=== PATIENT | female | born 1995 | race Asian ===

== ENCOUNTER 2016-10-22 19:21 | Emergency (ER) | payer OTHER ==
[~2016-10-22] VITALS: Ht 167.6 cm; Wt 49.9 kg
[~2016-10-22 19:21] MED LIST: BENADRYL25 MG ORAL; NITROFURANTOIN100 M2 ORAL; PROZAC20 MG ORAL; REGLAN5 MG ORAL; VITAFOL-OB CAP1 EACH PO
[2016-10-22 19:33] VITALS: BP 129/88
[2016-10-22] MEDS ORDERED: Acetaminophen 500mg (ES) tab ORAL ONE (20:00)
[2016-10-22 20:07] LABS: APPEARANCE,URINE CLEAR; KETONES,URINE NEGATIVE (NEGATIVE); LEUKOCYTE ESTERASE ,URINE NEGATIVE (NEGATIVE); NITRITE,URINE POSITIVE (NEGATIVE); PH,URINE 7 (4.5-8.0); PROTEIN,URINE NEGATIVE (NEGATIVE); UROBILINOGEN,URINE NORMAL MG/DL (0.0-1.0)
[2016-10-22 20:18] LABS: BACTERIA,URINE FEW /HPF; SQUAMOUS EPITHELIAL CELL,UR FEW /LPF (NONE/OCC); WBC,URINE 0-2 /HPF (0 - 2)
--- NOTE | 2016-10-22 20:18 | Emergency Room Report ---
History of Present Illness General Chief Complaint: Flu Like Symptoms Source: Patient Present Illness HPI 20-year-old female presents emergency department complaining of right-sided constant dull headache that was slowly progressive and she rates as 6/10 in severity x2-1/2 days. Patient states she took Advil with no relief. Patient denies nausea, vomiting, photophobia, fevers, chills. Patient reports increasing fatigue. Patient denies denies abdominal pain denies dysuria, frequency or urgency. Patient states she's been having intermittent insomnia and has been taking [id number] sleep aid. Patient denies other past medical history or medications. She denies constipation or diarrhea. She denies changes in vision or hearing. Denies cough, neck pain or stiffness, nasal congestion or rhinorrhea. Denies CP, Palpitations, LOC, AMS, dizziness, Changes in Vision, Sensation, paresthesias, or a sudden severe headache. denies hx of migraines or DE SOUZA's. Allergies: Coded Allergies: No Known Allergies (Unverified , 12/10/15) Patient History Past Medical History: see triage record Past Surgical History: none Pertinent Family History: none Last Menstrual Period: 10/19/16 Now: No : 1 Para: 0 Reviewed Nursing Documentation: PMH: Agreed, PSxH: Agreed Nursing Documentation-PMH Past Medical History: No Stated History Review of Systems All Other Systems: negative except mentioned in HPI Physical Exam Vital Signs Date Time Temp Pulse Resp B/P Pulse Ox O2 Delivery O2 Flow Rate FiO2 10/22/16 19:27 98.2 99 14 129/88 98 Room Air Sp02 EP Interpretation: reviewed, normal General Appearance: no apparent distress, alert, GCS 15, non-toxic Head: normocephalic, atraumatic Eyes: bilateral eye PERRL, bilateral eye normal inspection ENT: hearing grossly normal, normal pharynx, no angioedema, normal voice Neck: full range of motion, no meningismus, no bony tend, supple/symm/no masses Respiratory: chest non-tender, lungs clear, normal breath sounds, speaking full sentences Cardiovascular #1: regular rate, rhythm, no edema, normal capillary refill Gastrointestinal: normal bowel sounds, non tender, soft, no guarding, no rebound Rectal: deferred Genitourinary: normal inspection, no CVA tenderness Musculoskeletal: back normal, gait/station normal, normal range of motion, non- tender, no calf tenderness Neurologic: alert, oriented x3, responsive, motor strength/tone normal, sensory intact, cerebellar normal, normal gait, speech normal Psychiatric: judgement/insight normal, memory normal, mood/affect normal, no suicidal/homicidal ideation Skin: normal color, no rash, warm/dry, well hydrated Lymphatic: normal inspection Medical Decision Making PA Attestation Dr. abdullahi is my supervising Physician whom patient management has been discussed with. Diagnostic Impression: Primary Impression: Urinary tract infection Qualified Codes: N30.01 - Acute cystitis with hematuria Additional Impression: Headache Qualified Codes: R51 - Headache ER Course 20-year-old female presents emergency department complaining of right-sided constant dull headache that was slowly progressive and she rates as 8/10 in severity x2-1/2 days. Patient states she took Advil with no relief. Patient denies nausea, vomiting, photophobia, fevers, chills. Patient reports increasing fatigue. Patient denies denies abdominal pain denies dysuria, frequency or urgency. Patient states she's been having intermittent insomnia and has been taking [id number] sleep aid. Patient denies other past medical history or medications. She denies constipation or diarrhea. She denies changes in vision or hearing. Denies cough, neck pain or stiffness, nasal congestion or rhinorrhea. denies hx of migraines. Ddx considered but are not limited to migraine, SAH, Mass lesion, Cluster DE SOUZA, Tension DE SOUZA, Post lumbar puncture DE SOUZA, UTI, Vital signs: are WNL, pt. is afebrile H&PE are most consistent with DE SOUZA , no focal neurological deficit. will r/o UTI and , no recent procedures. ORDERS: -UA: Nitrite positive, few bacteria -- indicating infection -Urine HCG: negative ED INTERVENTIONS: -10mg Reglan Oral -Tylenol PO DISCHARGE: At this time pt. is stable for d/c to home. Will provide printed patient care instructions, and any necessary prescriptions. Care plan and follow up instructions have been discussed with the patient prior to discharge. Labs Test 10/22/16 19:54 Urine Color Pale yellow Urine Appearance Clear Urine pH 7 (4.5-8.0) Urine Specific [place] 1.005 (1.005-1.035) Urine Protein Negative (NEGATIVE) Urine Glucose (UA) Negative (NEGATIVE) Urine Ketones Negative (NEGATIVE) Urine Occult Blood 5+ (NEGATIVE) Urine Nitrite Positive (NEGATIVE) Urine Bilirubin Negative (NEGATIVE) Urine Urobilinogen Normal MG/DL (0.0-1.0) Urine Leukocyte Esterase Negative (NEGATIVE) Urine RBC 2-4 /HPF (0 - 2) Urine WBC 0-2 /HPF (0 - 2) Urine Squamous Epithelial Cells Few /LPF (NONE/OCC) Urine Bacteria Few /HPF (NONE) Urine HCG, Qualitative Negative Last Vital Signs Date Time Temp Pulse Resp B/P Pulse Ox O2 Delivery O2 Flow Rate FiO2 10/22/16 19:33 99 14 Room Air 10/22/16 19:33 98.2 129/88 98 Disposition: HOME, SELF-CARE Condition: Stable Scripts Acetaminophen* (TYLENOL EXTRA STRENGTH*) 500 Mg Tablet 500 MG ORAL Q6H, #30 TAB 0 Refills Prov: Carissa Hayden 10/22/16 Nitrofurantoin Monohyd/M-Cryst* (MACROBID 100 MG*) 100 Mg Capsule 100 MG ORAL EVERY 12 HOURS for 5 Days, #10 CAP Prov: Carissa Hayden 10/22/16 Patient Instructions: General Headache Without Cause, [id number], Urinary Tract Infection, [id number] Additional Instructions: Take medications as directed. Follow up with PCP in 3-5 days Return sooner to ED if new symptoms occur, or current symptoms become worse. - Please note that this Emergency Department Report was dictated using IZI-collectecomfort station attendant technology software, occasionally this can lead to erroneous entry secondary to interpretation by the dictation equipment. Carissa Hayden Oct 22, 2016 20:18
[2016-10-22] MEDS ORDERED: NITROFURANTOIN100 M2 ORAL (20:32)
[2016-10-22] MEDS ORDERED: TYLENOL EXTRA500 MG ORAL (20:32)
[2016-10-22 20:46] VITALS: BP 124/79
== END 2016-10-22 20:50 | disposition home or self-care (01) ==
LOC: EMR 20:08
DX: N39.0 Urinary tract infection, site not specified (principal); R51 Headache
CPT/HCPCS: 81003; 81025; 99284

== ENCOUNTER 2018-06-16 15:02 | Emergency (ER) | payer OTHER ==
[~2018-06-16] VITALS: Ht 162.6 cm; Wt 61.2 kg
[~2018-06-16 15:02] MED LIST changes: +TYLENOL EXTRA500 MG ORAL
--- NOTE | 2018-06-16 15:21 | Emergency Room Report ---
History of Present Illness General Chief Complaint: Female Urogenital Problems Source: Patient Present Illness HPI 22-year-old female patient presents the ER complaining of urine changes and "feeling weird". Patient reports that she has a history of depression and was recently placed on Cymbalta by her primary care provider. Patient states that she believes her symptoms are related to taking the medication. Denies dysuria , hematuria, vaginal discharge. Denies diarrhea. Denies flank pain. Reports urine is darker in color. Denies syncope or passage of clots. Denies abdominal pain, shortness of breath. Denies chest pain, fever. Denies injury or trauma. Denies thoughts of hurting herself or others. States she informed her psychiatrist of the symptoms and they told her to go to the ER. Denies diarrhea or constipation. Allergies: Coded Allergies: No Known Allergies (Unverified , 12/10/15) Patient History Past Medical History: see triage record Reviewed Nursing Documentation: PMH: Agreed; PSxH: Agreed Nursing Documentation-PMH Past Medical History: No History, Except For History Of Psychiatric Problem: Yes - depression Review of Systems All Other Systems: negative except mentioned in HPI Physical Exam Vital Signs Date Time Temp Pulse Resp B/P (MAP) Pulse Ox O2 Delivery O2 Flow Rate FiO2 06/16/18 15:05 98.8 102 18 125/89 94 Room Air Sp02 EP Interpretation: reviewed, normal General Appearance: well appearing, no apparent distress, alert, GCS 15, non- toxic Head: normocephalic, atraumatic Eyes: bilateral eye normal inspection, bilateral eye PERRL ENT: hearing grossly normal, normal pharynx, no angioedema, normal voice, uvula midline, moist mucus membranes Neck: full range of motion Respiratory: lungs clear, normal breath sounds, no rhonchi, no respiratory distress, no accessory muscle use, no wheezing, speaking full sentences Cardiovascular #1: regular rate, rhythm, no edema Gastrointestinal: non tender, soft, no mass, non-distended, no guarding, no rebound Genitourinary: no CVA tenderness Musculoskeletal: back normal, digits/nails normal, gait/station normal, normal range of motion, non-tender Neurologic: alert, oriented x3, responsive, motor strength/tone normal, sensory intact Psychiatric: mood/affect normal Skin: no rash Medical Decision Making PA Attestation Dr. Shannon is my supervising Physician whom patient management has been discussed with. Diagnostic Impression: Primary Impression: Hematuria Additional Impressions: Medication side effect Ovarian cyst ER Course Pt. presents to the ED c/o "feeling weird" and dark colored urine. Ddx considered but are not limited to medication side effect, hemorrhagic cyst, fibroids, UTI. Vital signs: are WNL, pt. is afebrile ER COURSE: CBC and CMP unremarkable, no elevation in LFTs, creatinine clearance and BUN normal, CK not elevated UA shows elevated RBCs, instruct patient follow-up with and EDGING MACHINE OPERATOR as needed , no signs of infection, does not require antibiotics Urine negative No abdominal tenderness palpation, normal bowel sounds, patient does not require CT abdomen at this time. Patient resting comfortably in bed. Zuly present at bedside. Zuly states that he spoke with psychiatrist over the phone and was told to discontinue the medication by psychiatrist, will follow-up next week. Order pelvic ultrasound. Informed by wastewater technician that patient declined transvaginal ultrasound, transabdominal ultrasound performed showing right-sided follicular cyst, no torsion, no fibroids, no free fluid. Informed patient follow-up with EDGING MACHINE OPERATOR for further treatment and referral. Discussed need for management and monitoring of cyst. Follow-up with psychiatrist as scheduled appointment to discuss medication use. Patient denies thoughts of hurting herself or others, do not believe patient danger to herself at this time, okay for outpatient follow-up and treatment. ER precautions given. DISCHARGE: At this time pt is stable for d/c to home. Patient is resting comfortably, in no acute distress, nontoxic appearing, talking without difficulty. Patient to take medications as instructed Will provide with patient care instructions and any necessary prescriptions. Care plan and follow-up instructions provided. Patient instructed to follow-up with primary care provider in 3 - 5 days. Patient questions asked and answered. Patient reports understanding and agreement to treatment plan. ER precautions given. Patient instructed to return to ER immediately for any new or worsening of symptoms including but not limited to increasing SOB, persistent fever, chest pain, intractable vomiting. - Please note that this Emergency Department Report was dictated using [employer] educational aide technology software, occasionally this can lead to erroneous entry secondary to interpretation by the dictation equipment. Labs Test 06/16/18 15:45 06/16/18 16:55 White Blood Count 10.5 K/UL (4.8-10.8) Red Blood Count 5.07 M/UL (4.20-5.40) Hemoglobin 15.0 G/DL (12.0-16.0) Hematocrit 44.0 % (37.0-47.0) Mean Corpuscular Volume 87 FL (80-99) Mean Corpuscular Hemoglobin 29.6 PG (27.0-31.0) Mean Corpuscular Hemoglobin Concent 34.1 G/DL (32.0-36.0) Red Cell Distribution Width 10.4 % (11.6-14.8) Platelet Count 446 K/UL (150-450) Mean Platelet Volume 6.3 FL (6.5-10.1) Neutrophils (%) (Auto) 62.4 % (45.0-75.0) Lymphocytes (%) (Auto) 26.5 % (20.0-45.0) Monocytes (%) (Auto) 9.2 % (1.0-10.0) Eosinophils (%) (Auto) 0.6 % (0.0-3.0) Basophils (%) (Auto) 1.2 % (0.0-2.0) Sodium Level 134 MMOL/L (136-145) Potassium Level 3.5 MMOL/L (3.5-5.1) Chloride Level 98 MMOL/L (98-107) Carbon Dioxide Level 22 MMOL/L (21-32) Anion Gap 14 mmol/L (5-15) Blood Urea Nitrogen 11 mg/dL (7-18) Creatinine 0.8 MG/DL (0.55-1.30) Estimat Glomerular Filtration Rate > 60 mL/min (>60) Glucose Level 95 MG/DL (74-106) Calcium Level 9.2 MG/DL (8.5-10.1) Total Bilirubin 1.2 MG/DL (0.2-1.0) Direct Bilirubin 0.3 MG/DL (0.0-0.3) Aspartate Amino Transf (AST/SGOT) 24 U/L (15-37) Alanine Aminotransferase (ALT/SGPT) 31 U/L (12-78) Alkaline Phosphatase 69 U/L (46-116) Total Creatine Kinase 144 U/L (26-308) Total Protein 9.0 G/DL (6.4-8.2) Albumin 4.2 G/DL (3.4-5.0) Globulin 4.8 g/dL Albumin/Globulin Ratio 0.9 (1.0-2.7) Urine Color Pale yellow Urine Appearance Clear Urine pH 7 (4.5-8.0) Urine Specific [place] 1.005 (1.005-1.035) Urine Protein Negative (NEGATIVE) Urine Glucose (UA) Negative (NEGATIVE) Urine Ketones 2+ (NEGATIVE) Urine Blood 4+ (NEGATIVE) Urine Nitrite Negative (NEGATIVE) Urine Bilirubin Negative (NEGATIVE) Urine Urobilinogen Normal MG/DL (0.0-1.0) Urine Leukocyte Esterase Negative (NEGATIVE) Urine RBC 2-4 /HPF (0 - 2) Urine WBC 0-2 /HPF (0 - 2) Urine Squamous Epithelial Cells Few /LPF (NONE/OCC) Urine Bacteria Few /HPF (NONE) Urine HCG, Qualitative Negative (NEGATIVE) CT/MRI/US Diagnostic Results CT/MRI/US Diagnostic Results : Imaging Test Ordered: Transabdominal US Impression Right-sided follicular cyst No torsion, no fibroids, no free fluid Last Vital Signs Date Time Temp Pulse Resp B/P (MAP) Pulse Ox O2 Delivery O2 Flow Rate FiO2 06/16/18 15:05 98.8 102 18 125/89 94 Room Air Disposition: HOME, SELF-CARE Condition: Stable Scripts Phenazopyridine Hcl* (PYRIDIUM*) 100 Mg Tablet 100 MG ORAL THREE TIMES A DAY, #15 TAB Prov: Checo Johnson 06/16/18 Patient Instructions: Hematuria, Adult, Ovarian Cyst, [id number] Additional Instructions: Followup with primary care provider in 3 -5 days. Discuss referral to and OB /CARDIOVASCULAR SONOGRAPHER. Follow-up with psychiatrist and discuss medication. Advised patient on discontinue medication currently. Take medications as directed. Patient questions asked and answered. ER precautions given, patient instructed to return to ER immediately for any new or worsening of symptoms. Checo Johnson Jun 16, 2018 15:21
[2018-06-16 16:02] LABS: BASOPHILS % (AUTO) 1.2 % (0.0-2.0); EOSINOPHILS % (AUTO) 0.6 % (0.0-3.0); LYMPHOCYTES % (AUTO) 26.5 % (20.0-45.0); MEAN CORPUSCULAR VOLUME 87 FL (80-99); MONOCYTES % (AUTO) 9.2 % (1.0-10.0); NEUTROPHILS % (AUTO) 62.4 % (45.0-75.0); PLATELET COUNT 446 K/UL (150-450); RED BLOOD COUNT 5.07 M/UL (4.20-5.40); RED CELL DISTRIBUTION WIDTH 10.4 % (11.6-14.8); WHITE BLOOD COUNT 10.5 K/UL (4.8-10.8)
[2018-06-16 16:10] LABS: ANION GAP 14 mmol/L (5-15); BLOOD UREA NITROGEN 11 mg/dL (7-18); CALCIUM 9.2 MG/DL (8.5-10.1); CARBON DIOXIDE 22 MMOL/L (21-32); CHLORIDE 98 MMOL/L (98-107); CREATININE 0.8 MG/DL (0.55-1.30); POTASSIUM 3.5 MMOL/L (3.5-5.1); SODIUM 134 MMOL/L (136-145)
[2018-06-16 16:16] LABS: CREATINE KINASE 144 U/L (26-308)
[2018-06-16 16:21] LABS: ALANINE AMINOTRANSFERASE 31 U/L (12-78); ALBUMIN 4.2 G/DL (3.4-5.0); ALBUMIN/GLOBULIN RATIO 0.9 (1.0-2.7); ALKALINE PHOSPHATASE 69 U/L (46-116); ASPARTATE AMINO TRANSFERASE 24 U/L (15-37); BILIRUBIN,TOTAL 1.2 MG/DL (0.2-1.0)
[2018-06-16 16:22] LABS: BILIRUBIN,DIRECT 0.3 MG/DL (0.0-0.3)
[2018-06-16 17:06] LABS: APPEARANCE,URINE CLEAR; BILIRUBIN, URINE NEGATIVE (NEGATIVE); COLOR,URINE PALE YELLOW; GLUCOSE, URINE (UA) NEGATIVE (NEGATIVE); KETONES,URINE 2+ (NEGATIVE); LEUKOCYTE ESTERASE ,URINE NEGATIVE (NEGATIVE); NITRITE,URINE NEGATIVE (NEGATIVE); PH,URINE 7 (4.5-8.0); PROTEIN,URINE NEGATIVE (NEGATIVE); UROBILINOGEN,URINE NORMAL MG/DL (0.0-1.0)
[2018-06-16] MEDS ORDERED: PHENAZOPYRIDIN100 MG ORAL (18:20)
[2018-06-16 18:36] VITALS: BP 118/80
--- NOTE | 2018-06-17 12:22 | Diagnostic Imaging Report ---
Indication: Pelvic pain. Negative test Technique: Transabdominal images only. Transvaginal images not obtained, per patient request. Doppler interrogation of the right ovary Comparison: none Findings: Uterus measures 8.7 cm length by 2.9 cm AP. Endometrium measures 4 mm thick. A calcification is seen in the endometrium. No myometrial abnormality. Right ovary measures 5.6 cm length. Left ovary cannot be visualized. Right ovary demonstrates normal Doppler flow. No definite free cul-de-sac fluid Impression: Limited exam, as described, due to lack of endovaginal images. Note also nonvisualization of the left ovary Endometrial calcification, nonspecific Otherwise unremarkable
== END 2018-06-16 18:36 | disposition home or self-care (01) ==
LOC: EMR 15:47
DX: R31.9 Hematuria, unspecified (principal); T43.215A Adverse effect of selective serotonin and norepinephrine reuptake inhibitors, initial encounter; Y92.009 Unspecified place in unspecified non-institutional (private) residence as the place of occurrence of the external cause; N83.201 Unspecified ovarian cyst, right side; F32.9 Major depressive disorder, single episode, unspecified
CPT/HCPCS: 36415; 76856; 80053; 81001; 81025; 82248; 82550; 85025; 99284